=== PATIENT | male | born 1965 | race Caucasian/White ===

== ENCOUNTER 2018-03-19 20:55 | Emergency (ER) | payer SELFPAY ==
[2018-03-19 21:00] VITALS: BP 144/95; PULSE 66; TEMP 97.6; BMI 33.3
[2018-03-19] MEDS ORDERED: DEXAMETHASONE LIQUID 0.5 MG/5 ML 240 ML BULK BOTTLE PO ONE (21:53)
[2018-03-19] MEDS ORDERED: DEXAMETHASONE SOD PHOSPHATE 10 MG/1 ML VIAL ONE (21:55)
--- NOTE | 2018-03-19 21:56 | PDOC ---
History of Present Illness - General Chief Complaint: Allergic Reaction Stated Complaint: Allergic Reaction Time Seen by Provider: 03/19/18 21:50 - History of Present Illness Initial Comments: 03/19/18 21:54 52-year-old male without comorbidities presents for evaluation of rash times one day without systemic symptoms Past History - Past Medical History Allergies/Adverse Reactions: Allergies Allergy/AdvReac Type Severity Reaction Status Date / Time No Known Allergies Allergy Verified 03/19/18 21:00 COPD: No - Suicide/Smoking/Psychosocial Hx Smoking History: Never smoked Review of Systems - Review of Systems Constitutional: No: Chills, Fever, Malaise, Night Sweats Respiratory: No: Cough, Shortness of Breath, Wheezing Integumentary: Yes: Pruritus, Rash *Physical Exam - Vital Signs Last Vital Signs Temp Pulse Resp BP Pulse Ox 97.6 F 66 18 144/95 98 03/19/18 20:57 03/19/18 20:57 03/19/18 20:57 03/19/18 20:57 03/19/18 20:57 - Physical Exam Comments: 03/19/18 21:54 HEAD: NC/AT EYES: Conjuntiva clear Ears: Canals and TM's normal NOSE: No d/c THROAT: Moist mucous membrances, oral pharanx clear, uvula midline NECK: Supple without adenopathy CARDIAC: S1 S2 LUNGS: CTA Full and Equal breath sounds ABDOMEN: Soft NT ND MS: Full ROM in all joints without edema NEUROLOGIC: No gross sensory or motor deficits, NVID SKIN: Normal color and temperature are diffuse wheals without indication of secondary infection on bilateral arms chest back and legs mild and the appear to be resolving *DC/Admit/Observation/Transfer Diagnosis at time of Disposition: Rash due to allergy - Discharge Dispostion Disposition: HOME Condition at time of disposition: Stable Decision to Admit order: No - Referrals Referrals: Adwoa Ervin MD [Staff Physician] - Deyvi Irwin MD [Staff Physician] - Jessica Romero MD [Staff Physician] - Flip An MD [Staff Physician] - Ambar Lai MD [Staff Physician] - Georgiana Hutchins MD [Staff Physician] - - Patient Instructions Printed Discharge Instructions: DI for Rash Additional Instructions: Return to the emergency room should symptoms worsen or go unresolved. You're given a dose of steroids which should help with the rash he may continue Benadryl for itching if he needed. It's important you understand and no what caused the rash. Please follow-up with your primary care physician in one to 2 days for further evaluation and treatment options - Post Discharge Activity
== END 2018-03-19 22:00 | disposition home or self-care (01) ==
LOC: JERFT 20:55
DX: T78.40XA Allergy, unspecified, initial encounter (principal)
CPT/HCPCS: 99281-25